=== PATIENT | female | born 1945 | race American Indian/Alaskan Native ===

== ENCOUNTER 2017-01-18 19:54 | Emergency (ER) | payer BC, MEDICARE, OTHER ==
[~2017-01-18] VITALS: Ht 167.6 cm; Wt 70.8 kg
[~2017-01-18 19:54] MED LIST: ASPIR-LOW81 MG PO; GLUCOPHAGE500 MG PO; JANUMET XR 50-1 EAC1 PO; KEFLEX500 MG PO; MACROBID 100 M100 MG PO; PYRIDIUM200 MG PO; VITAMIN D5000 UNIT PO
== END 2017-01-19 03:19 | disposition short-term general hospital (02) ==
LOC: ED 19:54
DX: S72.321A Displaced transverse fracture of shaft of right femur, initial encounter for closed fracture (principal); E11.9 Type 2 diabetes mellitus without complications; E03.9 Hypothyroidism, unspecified; M81.0 Age-related osteoporosis without current pathological fracture; Z79.84 Long term (current) use of oral hypoglycemic drugs; Z79.82 Long term (current) use of aspirin; Z90.49 Acquired absence of other specified parts of digestive tract; Y93.01 Activity, walking, marching and hiking; W17.89XA Other fall from one level to another, initial encounter
CPT/HCPCS: 51702; 71010; 73552; 81001; 87077; 87088; 87186; 96374; 96375; 99285; J1170; J2405

== ENCOUNTER 2020-10-10 12:13 | Emergency (ER) | payer OTHER, MEDICARE ==
[~2020-10-10] VITALS: Ht 152.4 cm; Wt 59.0 kg
== END 2020-10-10 13:53 | disposition home or self-care (01) ==
LOC: ED 12:13
DX: S01.01XA Laceration without foreign body of scalp, initial encounter (principal); W01.10XA Fall on same level from slipping, tripping and stumbling with subsequent striking against unspecified object, initial encounter; E11.9 Type 2 diabetes mellitus without complications; E03.9 Hypothyroidism, unspecified; Z79.899 Other long term (current) drug therapy; Z79.82 Long term (current) use of aspirin; Z79.84 Long term (current) use of oral hypoglycemic drugs
CPT/HCPCS: 12002; 70450; 99283-25